=== PATIENT | male | born 1960 | race Caucasian/White ===

== ENCOUNTER 2023-07-19 21:15 | Emergency (ER) | payer BC, SELFPAY ==
[2023-07-19] VITALS (7 sets, daily range): BP systolic 101–139; BP diastolic 68–83; BMI 37.2
[2023-07-19 22:02] LABS: % Basophils 0.6 % (0-2); % Eosinophils 3.1 % (0-6); % Immature Granulocytes 0.4 % (0-0.5); % Lymphocytes 21.9 % (20.5-51.1); % Monocytes 9.9 % (1.7-9.3); % Neutrophils 64.1 % (42.2-75.2); Absolute Basophils 0.1 10^3/uL (0-0.2); Absolute Eosinophils 0.3 10^3/uL (0-0.7); Absolute Lymphocytes 1.8 10^3/uL (1.2-3.4); Absolute Monocytes 0.8 10^3/uL (0.1-0.6); Absolute Neutrophils 5.4 10^3/uL (1.4-6.5); Hematocrit 44.2 % (39.0-52.0); Hemoglobin 14.9 g/dL (13.0-18.0); Mean Corp Hgb Conc. 33.7 g/dL (33.0-37.0); Mean Corpuscular Hgb 31.7 pg (27.0-31.0); Mean Platelet Volume 9.9 fL (7.4-10.4); Nucleated Red Blood Cells % 0 % (-); Platelet Count 216 10^3/uL (130-400); White Blood Cell Count 8.4 10^3/uL (4.8-10.8)
[2023-07-19 22:24] LABS: ALT (SGPT) 15 U/L (0-50); AST (SGOT) 22 U/L (17-59); Albumin 4.2 g/dl (3.5-5.0); Alkaline Phosphatase 55 U/L (38-126); Blood Urea Nitrogen 25 mg/dl (9-20); Calcium 9.5 mg/dl (8.4-10.2); Carbon Dioxide 25 mmol/L (22-30); Chloride 106 mmol/L (98-107); Estimated Creatinine Clearance 103 ml/min; Glucose 89 mg/dl (70-99); Potassium 4.1 mmol/L (3.5-5.1); Sodium 137 mmol/L (135-145); Total Bilirubin 0.4 mg/dl (0.2-1.3); Total Protein 6.8 g/dl (6.3-8.2); eGFR > 60.00
[2023-07-19 22:29] LABS: Troponin I < 0.012 ng/ml
--- NOTE | 2023-07-19 22:50 | ED.GENMED ---
History of Present Illness
General
Chief Complaint: Cardiac Symptoms
Source: patient and spouse
Exam Limitations: none
Time Seen by Provider: 07/19/23 22:05
Nursing documentation reviewed up to this point in time: agreed with
Travel History
Have you had any contact with someone who has COVID-19?: No
Do you have any symptoms of coronavirus? Fever > 100 degrees, chills, cough, shortness of breath, sore throat, loss of taste or smell, muscle aches, or headache?: No
History of Present Illness
History of Present Illness:
62-year-old male with a past medical history of hypertension, atrial fibrillation on Xarelto who presents to the emergency department with his spouse for evaluation of palpitations and fatigue also had a brief episode of chest pain this evening.
Patient reports onset of symptoms Thursday evening while at rest�he says he had palpitations and fatigue consistent with his typical A-fib symptoms. He says that he typically takes pill in the pocket (propafenone) and symptoms resolved after this
Thursday evening but unfortunately symptoms did not resolve. Throughout the weekend he was fatigued and feeling these palpitations, he called his acid condenser (follows with a acid condenser out of [place], [place] Dr. Encarnacion) and was scheduled
for an appointment on Thursday to discuss adjustment of his medication and to have an EKG. This evening however he started to have some tightness in his chest and with his whole constellation of symptoms decided to come to the emergency room to be
assessed. Onset of chest tightness tonight was while he was dozing off in armchair. He says that the tightness in his chest lasted about an hour; started about 2 hours prior to arrival and has since completely resolved. He denies any other
complaints tonight. Reports compliance with all medications including his blood thinner (Xarelto).
Past History
Past History
ED Past Medical History: Arrthythmia (atrial fibrillation), HTN and Hypercholesterolemia
ED Past Surgical History: Orthopedic (total right knee replacement 12/13)
Social History
Tobacco: Non-smoker
Alcohol: Occasional
Drug: None
Personal:
Living: with family
Employment: Employed
Review of Systems
Review of Systems
All Other Systems: ROS reviewed and negative except as documented in HPI and ROS
Constitutional: Reports fatigue; Denies fever or chills
EENT: Denies sore throat or runny nose
Respiratory: Denies cough or trouble breathing
Cardiac: Reports chest pain and palpitations; Denies diaphoresis or syncope
ABD/GI: Denies abdominal pain, nausea or vomiting
: Denies flank pain
Musculoskeletal: Denies neck pain or back pain
Neurological: Denies dizzy, headache, weakness or numbness
Phy Exam
Physical Exam
Physical Exam:
General: Awake, alert, oriented x3; no acute distress
Head: Normocephalic, atraumatic
Eyes: Conjunctiva normal, EOMI
Throat: Airway intact, handling secretions
Neck: Trachea midline, supple without meningismus
Lungs: Clear to auscultation bilaterally, no wheezing, rales, rhonchi
Heart: Regular rate and irregularly irregular rhythm, no murmurs, gallops, or rubs
Abd: Soft, non distended, nontender
Neuro: Cranial nerves grossly intact, speech fluid
Skin: no rash
Extremities: No edema in extremities, equal pulses in all extremities
Scores
Heart Failure Risk
Heart Failure Risk Score: Not Applicable
Heart Score for Chest Pain Patients
STEMI patient?: No
History: Slightly or Non-Suspicious
ECG: Normal
Age: >45 - <65 years
Risk Factors: 1 or 2 Risk Factors
Troponin: </= Normal Limit
Heart Score for Chest Pain Patients: 2
Heart Score Risk: 2.5% MACE over next 6 weeks
Withdrawal Assessment of Alcohol
Withdrawal Assessment Completed?: Not applicable
Course
Orders/Labs/Results
Orders:
Orders
07/19/23 21:16
Electrocardiogram (*1) Urgent
Reason for Study: Chest Pain
EKG- Treatment ONCE
07/19/23 21:55
CMP [Comprehensive Metabolic Panel] Urgent
Complete Blood Count/With Diff Urgent
Troponin I Urgent
07/19/23 22:11
CR Chest - 2 Views Urgent
Comment:
Reason For Exam: cp
07/19/23 23:40
Propofol [Diprivan] 20 ml .ROUTE .STK-MED
07/19/23 23:43
Troponin I Urgent
07/19/23 23:48
EKG [Electrocardiogram (*1)] Urgent
Reason for Study: Other
Other Reason for Exam: post cardioversion
07/19/23 23:49
EKG- Treatment ONCE
Abnormal Lab Results
07/19/23
21:55
MCH 31.7 H pg
(27.0-31.0)
Absolute Monos (auto) 0.8 H 10^3/uL
(0.1-0.6)
Monocytes % 9.9 H %
(1.7-9.3)
BUN 25 H mg/dl
(9-20)
07/19/23 21:55
07/19/23 21:55
Vital Signs
Initial and Last Documented VS:
Initial Vital Signs
Temp Pulse Resp BP Pulse Ox
36.7 C 80 24 139/83 99
07/19/23 21:20 07/19/23 21:20 07/19/23 21:20 07/19/23 21:20 07/19/23 21:20
Last Documented Vital Signs
Temp Pulse Resp BP Pulse Ox
36.7 C 66 19 113/71 96
07/20/23 00:34 07/20/23 00:34 07/20/23 00:34 07/20/23 00:34 07/20/23 00:34
Procedures
Cardioversion
Indication:: Afib
Performed by:: Tim Cifuentes MD
Synchronized?: Yes
Energy Used: 200 joules
Number of attempts: 1
Successful?: Yes
ASA Risk Score: Class II
Any reaction or bad outcome to prior sedation/anesthesia?: No history of a reaction
Sedation level to be attained: moderate
Chart and allergies reviewed: Yes
Patient reassessed prior to sedation: Yes
Time out completed at (validating right patient & procedure): 23:54
History of difficult intubation: No
Airway free of obstruction: Yes
Patient has a gag reflex: Yes
Patient is able to open mouth: Yes
Patient has no dentures: Yes
Patient has no loose teeth: Yes
Medication administered by Provider during Moderate Sedation: IV Propofol (mg)
Total dose administered: 60
Time drug administered: 23:54
Start Time: 23:54
Stop Time: 00:04
MDM/Problems Addressed
Differential Diagnosis Includes:
Symptomatic A-fib, acute ME, pneumonia, pneumothorax, anxiety, pericarditis
MDM/Problems Addressed:
62-year-old male presents for evaluation of palpitations and fatigue since Thursday consistent with prior A-fib symptoms; tonight he had some accompanying chest tightness for about an hour that has since resolved. Vital signs here are all normal.
Exam as above. EKG shows A-fib with controlled ventricular rate, no STEMI. Plan to place an IV check labs including a CBC and a CMP, troponin. Will check a chest x-ray. Will monitor closely reassess after the above.
Initial labs reviewed: CBC unremarkable, CMP shows no clinically significant abnormalities. Troponin undetectable x2. Chest x-ray shows no acute disease on my review. Patient's vital signs have remained stable. I had a long discussion with the
patient�suspect symptoms are related to A-fib he says these are consistent with prior A-fib symptoms and he is frustrated because pill in pocket is typically quite effective and he has never been in A-fib for this long. He is compliant with his
Xarelto without any missed doses would be a reasonable candidate for elective cardioversion here in the emergency room given his degree of symptoms. He is agreeable to undergoing this procedure electively here in the emergency room.
Patient successfully cardioverted as documented in procedure note. Feeling much better after cardioversion. Vitals have been stable. Will monitor for brief period time and if he remains asymptomatic with stable vitals plan for discharge and
outpatient cardiology follow-up.
Patient has remained asymptomatic throughout observation after cardioversion is now awake and alert feeling very well. Vitals have been stable. Stable for discharge at this point. Fortunately he already has an appointment scheduled with his
acid condenser tomorrow and I advised him to keep this appointment. We spoke about return precautions and all questions were answered.
Chronic conditions affecting care:
A-fib
*Radiology
Radiology exam reviewed: preliminary read by ED provider
*Pulse Oximetry
Patient hypoxic: no
*EKG
Interpreted by ED Provider?: Yes
Heart Rate: 90
Rate: normal
Rhythm: a-fib
[place]: normal axis
Interval: normal interval
QRS Pattern: normal QRS
Ischemia: no ischemia
*Critical Care Note
Total Time (30-74mins, 75-104mins- exclusive of procedures): Not Applicable
Data Reviewed
Review of Other/Old Records Reveals: Labs and Records
Source: patient and spouse
ED Attending Note
-
Portions of this chart may have been created with voice recognition software.� Occasional wrong word or��sound alike� substitutions may have occurred due to the inherent limitations of voice recognition software.
Discharge Plan
Departure
Patient Disposition: Home (Routine Discharge)
Date of Disposition: 07/20/23
Time of Disposition: 00:43
Patient with high blood pressure during this ER visit?: No
Discharge Problem:
Atrial fibrillation status post cardioversion, Chest pain
Instructions: Atrial Fibrillation (DC), Chest Pain (DC), MODERATE SEDATION ADULT
Prescriptions:
No Action
Xarelto 20 mg Tablet
20 mg PO DAILY
vitamin B complex Tablet
1 tab PO DAILY
cholecalciferol (vitamin D3) [Vitamin D3] 10 mcg (400 unit) Tablet
10 mcg PO DAILY
Men's Multivitamin 400-20-300 mcg Tablet
1 tab PO
Fast Acting Metoprolol
50 mg PO DAILY
Fast Acting Metoprolol
25 mg PO DAILY PRN (Reason: at fib)
rosuvastatin
1 tab PO DAILY
Rx Instructions:
doesnt know mg
Referrals:
[facility] [Other]
Activity Restrictions/Additional Instructions:
You should follow-up with your acid condenser as scheduled tomorrow to discuss management of your medications and to follow-up after cardioversion as well as to discuss your chest discomfort.
Thank you for visiting the Emergency Department at [facility].
1. Please schedule a follow up appointment as directed. Call first thing tomorrow morning to make an appointment.
2. If indicated, please take your medications as instructed and indicated on discharge paperwork.
3. If any of your symptoms do not improve, or persist, or become more severe within 6-12 hours, please return to the emergency department for further care.
4. Please return to the emergency department if you develop a headache, neck pain/stiffness, fever greater than 100.4F, chest pain, shortness of breath, persistent nausea, vomiting, slurred speech, difficulty walking, numbness/tingling, weakness,
signs of infection or any other symptoms that are worrisome to you.
Please call [phone] if you have any questions.
Interventions
Interventions:
*Risk Screen - Suicide Last Done: 07/19/23 21:20
*General Assessment Last Done: 07/20/23 00:22
*Neglect/Abuse Screening Last Done: 07/19/23 21:20
*ED COVID-19 Vaccine History Last Done: 07/20/23 00:22
ED- Pulmonary Assessment Last Done: 07/19/23 22:38
ED- Cardiac Assessment Last Done: 07/19/23 22:38
Discharge Date and Time
Print Language: SPANISH
[2023-07-20] VITALS (11 sets, daily range): BP systolic 107–121; BP diastolic 64–75
[2023-07-20 00:32] LABS: Troponin I < 0.012 ng/ml
== END 2023-07-20 01:29 | disposition home or self-care (01) ==
LOC: EMR 21:15
PROVIDERS: Emergency Medicine; EMERGENCY PHYSICIAN Emergency Medicine; REFERRING PHYSICIAN Internal Medicine Cardiovascular Disease
DX: I48.91 Unspecified atrial fibrillation (principal); I10 Essential (primary) hypertension
CPT/HCPCS: 92960; 99285; 99152; 71046; 80053; 84484; 85025; 93005

== ENCOUNTER 2024-06-10 22:31 | Emergency (ER) | payer BC, SELFPAY ==
[2024-06-10 22:34] VITALS: BP 172/88
[2024-06-10 22:57] VITALS: BP 135/72
[2024-06-10 23:00] VITALS: BMI 36.4
[2024-06-10 23:15] LABS: % Basophils 0.3 % (0-2); % Eosinophils 2.7 % (0-6); % Immature Granulocytes 0.6 % (0-0.5); % Lymphocytes 21.9 % (20.5-51.1); % Monocytes 9.4 % (1.7-9.3); % Neutrophils 65.1 % (42.2-75.2); Absolute Eosinophils 0.2 10^3/uL (0-0.7); Absolute Immature Granulocytes 0.1 10^3/uL (0-0.05); Absolute Lymphocytes 1.9 10^3/uL (1.2-3.4); Absolute Monocytes 0.8 10^3/uL (0.1-0.6); Absolute Neutrophils 5.8 10^3/uL (1.4-6.5); Hematocrit 39.4 % (39.0-52.0); Hemoglobin 13.2 g/dL (13.0-18.0); Mean Corp Hgb Conc. 33.5 g/dL (33.0-37.0); Mean Corpuscular Hgb 31.6 pg (27.0-31.0); Mean Corpuscular Volume 94.3 fL (80.0-94.0); Mean Platelet Volume 9.3 fL (7.4-10.4); Nucleated Red Blood Cells % 0 % (-); Platelet Count 206 10^3/uL (130-400); Red Blood Cell Count 4.18 10^6/uL (4.70-6.10); Red Cell Dist. Width 12.4 % (11.5-14.5); White Blood Cell Count 8.8 10^3/uL (4.8-10.8)
[2024-06-10 23:33] VITALS: BP 130/64
[2024-06-10 23:34] LABS: ALT (SGPT) 13 U/L (0-50); AST (SGOT) 20 U/L (17-59); Albumin 3.9 g/dl (3.5-5.0); Alkaline Phosphatase 66 U/L (38-126); Blood Urea Nitrogen 28 mg/dl (9-20); Calcium 9.2 mg/dl (8.4-10.2); Carbon Dioxide 22 mmol/L (22-30); Chloride 110 mmol/L (98-107); Estimated Creatinine Clearance 115 ml/min; Glucose 97 mg/dl (70-99); Potassium 4.1 mmol/L (3.5-5.1); Sodium 139 mmol/L (135-145); Total Bilirubin 0.4 mg/dl (0.2-1.3); Total Protein 6.3 g/dl (6.3-8.2); eGFR > 60.00
[2024-06-10 23:37] LABS: COVID-19 Antigen Negative (Negative)
[2024-06-10 23:45] LABS: NT-proBNP < 20.0 pg/ml; Troponin I 0.013 ng/ml
[2024-06-11] VITALS: BP 125/65
--- NOTE | 2024-06-11 00:26 | ED.GENMED ---
History of Present Illness
General
Chief Complaint: Breathing Problem
Source: patient and spouse
Exam Limitations: none
Time Seen by Provider: 06/10/24 22:52
Nursing documentation reviewed up to this point in time: agreed with
History of Present Illness
History of Present Illness:
63 yo male w h/o afib w ablations and none since, HTN, diagnosed at 2 days ago for PNA and on Augmentin 875 mg BID has had 6 doses. Is here for fatigue, feels he can't get a deep breath, feels 'a little' pressure in his chest.
Denies f/c/n/v/d/c. Appetite good. His cough is improving with Tessalon Perles.
Past History
Past History
ED Past Medical History: Arrthythmia (atrial fibrillation), HTN and Hypercholesterolemia
ED Past Surgical History: Orthopedic (total right knee replacement 12/13)
Social History
Tobacco: Non-smoker
Alcohol: Occasional
Drug: None
Personal:
Living: with family
Employment: Employed
Review of Systems
Review of Systems
Allergies reviewed?: Yes
All Other Systems: ROS reviewed and negative except as documented in HPI and ROS
Constitutional: Reports fatigue; Denies fever or chills
EENT: Denies sore throat
Respiratory: Reports cough (improving); Denies trouble breathing (feels he can't take a deep breath)
Cardiac: Reports chest pain ('a little' pressure in chest)
ABD/GI: Denies abdominal pain, nausea, vomiting, diarrhea or anorexia
Musculoskeletal: Reports no symptoms
Skin: Reports no symptoms
Neurological: Reports no symptoms
Phy Exam
Physical Exam
Physical Exam:
GENERAL: No acute distress. A&Ox3.
CONSTITUTIONAL: Afebrile.
EYES: clear, conjunctivae normal
ENMT: moist mucus membranes, Pharynx nl
RESPIRATORY: Regular respirations, nonlabored, lungs clear. PUlse ox 96% RA
CARDIOVASCULAR: Regular rate and rhythm, no murmurs, no rubs.
GI: Soft, nontender, normal BS
MUSCULOSKELETAL: Moves with ease. Well perfused.
SKIN: Warm, dry, pink
PSYCH: Normal mood and affect. Well kept, interactive and appropriate
NEUROLOGIC: Awake, alert and oriented. No focal neurological deficits
Scores
Heart Failure Risk
Heart Failure Risk Score: Not Applicable
Course
Orders/Labs/Results
Orders:
Orders
06/10/24 22:44
Electrocardiogram (*1) Urgent
Reason for Study: Other
Other Reason for Exam: Respiratory Distress
Cardiac Monitoring- Treatment ONCE
EKG- Treatment ONCE
IV Insert/Care/Rem.- Treatment PRN
CR Chest - 2 Views Urgent
Comment:
Reason For Exam: respiratory distress
O2 Therapy [RESP] Urgent
Titrate/Wean O2 to maintain O2 sat greater than (%): 93
Special Instructions: TO MAINTAIN CONTINUOUS O2 SATS >/= 93%
Pulse Ox/cont/shift [RESP] Urgent
Quantity: 1
Special Instructions: continuous pulse ox
06/10/24 23:10
Complete Blood Count/With Diff Urgent
Comprehensive Metabolic Panel Urgent
NT-proBNP Urgent
Troponin I Urgent
06/10/24 23:14
COVID-19 Antigen Urgent
Source: Nasal Swab
Influenza A+B Rapid Molecular Urgent
AYDEE Source: Nasal Swab
Specimen Description:
06/11/24 00:36
Azithromycin [Zithromax] 500 mg PO NOW STA
Abnormal Lab Results
06/10/24
23:10
RBC 4.18 L 10^6/uL
(4.70-6.10)
MCV 94.3 H fL
(80.0-94.0)
MCH 31.6 H pg
(27.0-31.0)
Abs Immat Gran (auto) 0.1 H 10^3/uL
(0-0.05)
Absolute Monos (auto) 0.8 H 10^3/uL
(0.1-0.6)
Immature Gran % 0.6 H %
(0-0.5)
Monocytes % 9.4 H %
(1.7-9.3)
Chloride 110 H mmol/L
(98-107)
BUN 28 H mg/dl
(9-20)
06/10/24 23:10
06/10/24 23:10
Vital Signs
Initial and Last Documented VS:
Initial Vital Signs
Temp Pulse Resp BP Pulse Ox
98.2 F 69 20 172/88 95
06/10/24 22:34 06/10/24 22:34 06/10/24 22:34 06/10/24 22:34 06/10/24 22:34
Last Documented Vital Signs
Temp Pulse Resp BP Pulse Ox
98.1 F 56 17 125/65 98
06/10/24 23:53 06/11/24 00:45 06/10/24 23:00 06/11/24 00:00 06/11/24 00:45
MDM/Problems Addressed
Differential Diagnosis Includes:
worsening PNA
MDM/Problems Addressed:
63 yo male w h/o afib w ablations and none since, HTN, diagnosed at 2 days ago for PNA and on Augmentin 875 mg BID has had 6 doses. Is here for fatigue, feels he can't get a deep breath, feels 'a little' pressure in his chest.
Denies f/c/n/v/d/c. Appetite good. His cough is improving with Tessalon Perles.
EKG NSR
06/11: 12:10 AM
CXR: read initially by Dr. Thompson and myself: No discernable PNA.
CBC no clinically significant abnormality
CMP: No clinically significant abnormality
Troponin within normal limits
BNP normal
COVID-negative
Flu negative
Patient out of bed and ambulating well with maintaining pulse ox at 97% room air
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 This is most likely the cause of his increased fatigue
He has a next 3 days off when he can rest.
All results reviewed with patient and
They are comfortable going home
Augmentin is not the drug of choice for community-acquired pneumonia, will add a Z-Aneesh
*Critical Care Note
Total Time (30-74mins, 75-104mins- exclusive of procedures): Not Applicable
ED Attending Note
-
Portions of this chart may have been created with voice recognition software.� Occasional wrong word or��sound alike� substitutions may have occurred due to the inherent limitations of voice recognition software.
Discharge Plan
Departure
Patient Disposition: Home (Routine Discharge)
Date of Disposition: 06/11/24
Time of Disposition: 00:36
Patient with high blood pressure during this ER visit?: No
Condition: Good
Covid-19: Negative COVID-19
Discharge Problem:
Atypical pneumonia
Instructions: Community-acquired pneumonia in adults
Prescriptions:
New
azithromycin [Zithromax] 250 mg tablet
250 mg PO DAILY Qty: 4 0RF
No Action
Xarelto 20 mg Tablet
20 mg PO DAILY
vitamin B complex Tablet
1 tab PO DAILY
cholecalciferol (vitamin D3) [Vitamin D3] 10 mcg (400 unit) Tablet
10 mcg PO DAILY
Men's Multivitamin 400-20-300 mcg Tablet
1 tab PO
Fast Acting Metoprolol
50 mg PO DAILY
Fast Acting Metoprolol
25 mg PO DAILY PRN (Reason: at fib)
rosuvastatin
1 tab PO DAILY
Rx Instructions:
doesnt know mg
Referrals:
[facility] [Other]
Activity Restrictions/Additional Instructions:
As we discussed, your workup here today shows nothing worrisome.
Continue the Augmentin and add the azithromycin.
I sent a prescription for azithromycin to your pharmacy. Start it tomorrow as you were given a dose here today.
Drink plenty of fluids and rest over the next 3 days that you have off.
See your doctor for recheck next week if you are not feeling much better by then.
Interventions
Interventions:
*Risk Screen - Suicide Last Done: 06/10/24 22:58
*General Assessment Last Done: 06/10/24 22:58
*Neglect/Abuse Screening Last Done: 06/10/24 22:58
*ED- Fall Risk Assessment Last Done: 06/10/24 22:57
*ED COVID-19 Vaccine History Last Done: 06/10/24 22:57
*Nursing Disposition Last Done: 06/11/24 00:54
ED- Cardiac Assessment Last Done: 06/10/24 23:05
ED- Pulmonary Assessment Last Done: 06/10/24 23:05
Discharge Date and Time
Discharge Date/Time: 06/11/24 00:54
Print Language: CENTRAL AFRICAN
[2024-06-11] MEDS: ZITHROMAX 500 MG PO (00:45)
== END 2024-06-11 00:54 | disposition home or self-care (01) ==
LOC: EMR 22:31
PROVIDERS: Registered Nurse; EMERGENCY PHYSICIAN Emergency Medicine
DX: J18.9 Pneumonia, unspecified organism (principal); I48.91 Unspecified atrial fibrillation; I10 Essential (primary) hypertension; E78.00 Pure hypercholesterolemia, unspecified; Z96.651 Presence of right artificial knee joint
CPT/HCPCS: 99283; 71046; 80053; 83880; 84484; 85025; 87502; 87811; 93005